=== PATIENT | male | born 1955 | race Caucasian/White ===

== ENCOUNTER 2019-02-17 14:50 | Outpatient (CLI) | payer MEDICARE ==
--- NOTE | 2019-02-19 15:59 | OP Clinic Progress Note ---
DATE OF VISIT: 02/17/2019 SUBJECTIVE: Sherif White presented to clinic today for follow-up of left severe heel pain. The pain is worse today than it has been previously according to the patient. He stands all day on a soft mat but is standing all day at work. He has been prescribed Lotrisone due to some abnormal skin discoloration/appearance with xerosis and slight mixed discoloration and xerotic appearance. This may be a tinea pedis appearance as it had a bulla on his most recent visit which was deroofed. The patient has also been using an antibiotic ointment and a Band-Aid on the site of the bulla and this is almost completely healed today. The patient has had a history of blistering in this area at times and has been having pain in the heel for years now and states he is ready to obtain treatment. He is here today for a right heel steroid injection in the plantar fascia which he is hopeful will be helpful today. The patient does not admit to any fevers, chills, nausea, vomiting, shortness of breath or chest pain at this time. He is not diabetic. Dr. Stevens is his primary care physician. This past visit when I saw him on Friday I prescribed AFO Anna brace orthotics. I believe I wrote them for both ankles but the patient thought today they were just for the right ankle. We will need to clarify with him that they are for both ankles and he may want to hold off on getting good orthotic inserts from [employer] for just the left foot if he is getting good AFOs for both. His appointment is in mid February with [facility] as he had already received a call from them. OBJECTIVE: Vitals: Temperature 98.8 degrees Fahrenheit, heart rate 90, respiration rate not recorded, blood pressure 144/76. O2 saturation is 94% on room air. Vascular: 1+ DP and PT pulses, bilaterally. Capillary refill time is less than 3 seconds to the toes bilaterally. There is mild to moderate edema still noted, bilateral lower legs. Dermatologic: The medial left heel bulla is appearing almost completely healed at this time. There is still some intermixed dark discoloration like an old eschar still noted at the left plantar heel. There is no erythema or warmth noted. There is no drainage noted. There is no fluctuance noted. Musculoskeletal: There is severe pain on palpation noted at the plantar medial calcaneal tubercle, left heel, as well as just distal to that area just off the tubercle area distally. The patient seems to be a little bit more soft in that area than just proximal to it. It is difficult to measure the range of motion of the left ankle due to severe pes planovalgus deformity as well. Pes planovalgus deformity is noted bilaterally and the RCSP basically has medial ankle to the ground on the right foot more than the left. Neurologic: Light touch sensation is intact to the toes, bilaterally. ASSESSMENT AND PLAN: 1. Plantar fasciitis, left foot. 2. Tinea pedis, left heel. 3. Posterior tibial tendon dysfunction bilateral, but right is more than the left. 4. Venous insufficiency, bilateral lower extremities. The risks and benefits of a procedure for a steroid injection of the left plantar fascia was discussed including bleeding and infection as well as other things including steroid flare. The patient agreed by written and verbal consent to go forward with the steroid injections to the left plantar fascia. An alcohol swab was utilized to cleanse the area of the plantar medial heel and a total of 1 mL of 2% lidocaine plain and 1 mL of 0.5% Marcaine plain, 0.5 mL of dexamethasone, 4 mg/mL and 0.5 mL of Kenalog 40 mg/mL were injected into the plantar fascia area as well as to the calcaneal nerve branch off the medial side. The patient admitted some improvement and relief after standing up again. We will see how much this helps him. A Band-Aid was applied prior to getting up. The patient tolerated the procedure very well. The patient knows that we will give this a month and if it is improving a decent amount we will consider a second injection of the steroid at that time. If we are not getting improvement at that time, however, then we will consider an MRI and may need to consider surgical assessment. We will also need to consider possible biopsy of the skin if the skin is not healing or improving with Lotrisone underneath the heel. I believe he stated he has had that for quite some time. He has never tried a prescription antifungal/steroid, however, for it so we will see if it continues working. He is to continue doing that on the plantar heel and antibiotic ointment and a Band-Aid to that small area where the bulla was deroofed on the medial side of the heel. Antibiotic ointment and a Band-Aid were applied to that today as well as where the injection took place. The patient has no further questions or concerns and we will see him in 1 month for follow-up and possible repeat steroid injection. Catherine [email or web address] (Dictated/Not Signed) [place] JOB#: [id number] MTDD
== END 2019-02-17 15:20 ==
LOC: POD 14:50
PROVIDERS: ATTEND Podiatrist Foot & Ankle Surgery
DX: M72.2 Plantar fascial fibromatosis (principal); M76.821 Posterior tibial tendinitis, right leg; M76.822 Posterior tibial tendinitis, left leg; B35.3 Tinea pedis; I87.2 Venous insufficiency (chronic) (peripheral)
CPT/HCPCS: 20550

== ENCOUNTER 2019-03-18 14:31 | Outpatient (CLI) | payer MEDICARE ==
--- NOTE | 2019-03-23 15:47 | OP Clinic Progress Note ---
DATE OF VISIT: 03/18/2019 SUBJECTIVE: Sherif White is a 64-year-old male presenting to the clinic today for follow up of plantar fasciitis on the left foot as well as abnormal skin changes and bulla formation on the left heel as well as follow up of the injury on the right foot at the fifth toe where he stubbed his toe and possibly sustained a small fracture. The patient refused x-rays last time and does not want them at this time as he feels that the toe is feeling great and without really any pain at this time. The patient admits that he is not having the type of plantar fasciitis pain that he was before. It is much more mild. The patient does state however that he is getting lots of drainage and blisters forming underneath that plantar medial left heel. The patient was using Lotrisone at one point and feels like it was improving, however he stopped using it because of the wound opening. The patient is willing to do whatever he needs to do and understands the importance of possibly doing a biopsy either today or in the near future to make sure this is not some sort of benign or malignant soft tissue mass or skin cancer. The patient understands the importance of doing that if we need to, soon. The patient is interested in attempting to try a heel offloading surgical shoe. The patient does not admit to any fevers, chills, nausea, vomiting, shortness of breath or chest pain at this time. OBJECTIVE: Vitals: Temperature 97.5 degrees Fahrenheit, heart rate 106, respiration rate 20, blood pressure 127/71. O2 saturation is 94% on room air. Vascular: 1+ DP and PT pulses, left foot. Capillary refill time is less than 3 seconds to the toes of the left foot. There is no edema noted today on the right fifth toe area any more nor in the left foot. Dermatologic: The left plantar medial heel has a very thin layer of skin with dark discoloration and some pinpoint dark spots and striations throughout the skin in that area. There is also evidence of bulla formation on the proximal medial aspect as well as a small amount of open raw tissue exposed. This area just has the appearance like it has been beat down with pressure and it is concerning as to whether or not it has a verrucoid appearance versus a tinea pedis type of look. It appears to be more of tinea pedis with a bulla formation and skin changes. There is no purulence, malodor, warmth or erythema noted at this time. There is hyperkeratosis that is mild noted on the right medial central arch as well as the plantar medial IPJ bilateral great toes. There is no ecchymosis noted today at the right fifth toe. Musculoskeletal: There is much less severe, even mild pain on palpation directly at the plantar medial heel where the lesion is noted. This is much improved from last time. The patient did state that he was off work this last week due to being ill. He is feeling much better at this time it seems. The patient has severe pes planovalgus deformity bilaterally. In RCSP his medial ankle drops quite far, almost to the ground. There is no pain on palpation noted today at the right fifth toe. Neurologic: Light touch sensation is diminished to the foot. There is no pain with debridement, but there is a little bit of pain with direct pressure on the left heel. ASSESSMENT AND PLAN: 1. Skin ulcer over the plantar aspect of the left foot, unspecified ulcer stage, L97.529. 2. Tinea pedis, left heel. 3. Injury of toe of right foot, subsequent encounter. There was no procedure performed today. The area on the plantar medial heel was cleansed very well today with alcohol swabs and evaluated. There was very minimal bulla formation as the patient states that he already opened up most of the blister formation that was there this morning. He states he will leave it intact the next time if it happens again. The patient has very thin skin underneath the heel and an abnormal skin appearance that is suggestive of a tinea pedis versus a possible verrucoid lesion. There is also of course some concern for some sort of skin dystrophic changes with some sort of concern for a cancerous lesion that of course needs to be in my differential. We discussed the possibility of skin biopsies today versus giving him two weeks on Lotrisone twice daily with a heel offloading surgical shoe that we dispensed today. We decided to go ahead and go forward with this at this time for the surgical shoe and Lotrisone twice daily. If this is improving in one week from now we will continue, but if it is not improving then we will consider going ahead and doing skin biopsies x2 of the plantar medial left heel. The patient is good with this plan and agrees and we will go forward with this at this time. We put a surgical shoe on him today with the heel offloading and encouraged him to be cautious to not lean back on the heel as he may fall backwards and with his cane he demonstrated safe and easy ambulation and he felt good and stable and good balance with walking today. The patient had no further questions or concerns. We will have him return to clinic in one week and we will consider biopsies versus another week of continued treatment depending on how it looks. Scotty Rodríguez.P.M.(Dictated/not signed) /Accutype [id number] /mab MTDD
== END 2019-03-18 15:00 ==
LOC: POD 14:31
PROVIDERS: ATTEND Podiatrist Foot & Ankle Surgery
DX: S99.921A Unspecified injury of right foot, initial encounter (principal); L97.529 Non-pressure chronic ulcer of other part of left foot with unspecified severity; B35.3 Tinea pedis; X58.XXXA Exposure to other specified factors, initial encounter; Y99.8 Other external cause status
CPT/HCPCS: 99213

== ENCOUNTER 2019-03-25 14:16 | Outpatient (CLI) | payer MEDICARE ==
--- NOTE | 2019-03-30 14:11 | OP Clinic Progress Note ---
DATE OF VISIT: 03/25/2019 SUBJECTIVE: Sherif White is a 64-year-old male presenting with his in the clinic today. He is here for follow up of the left plantar medial heel skin lesion/abnormality that he has been dealing with for quite some time now. He has been having multiple bulla formation recently, but much less this week he reports. We have been considering doing biopsies of this area as he has struggled to improve and it is with an abnormal skin appearance. The patient states that he has been feeling a lot better there. He does state that he tried using the heel offloading surgical shoe this last week, but felt like he strained his knee and hamstring on the opposite leg trying to wear it and stopped using it. He is willing to try and use it potentially at some of the time still. The patient also admits he is receiving his custom AFO braces for bilateral ankles tomorrow. He is looking forward to that and plans to try and use those in both of his regular shoes. He plans to get new shoes if this does not work. The patient is here for follow up of that plantar medial heel lesion as well as for follow up of the right fifth toe injury that he sustained a couple of visits ago. The patient does not admit to any fever, chills, nausea, vomiting, shortness of breath or chest pain. OBJECTIVE: Vitals: Temperature 98.0 degrees Fahrenheit, heart rate 115, respiration rate 20, blood pressure 125/79. O2 saturation is 93% on room air. Vascular: 1+ DP and PT pulses, left foot. Capillary refill time is less than 3 seconds to the toes of the left foot. There is no edema noted, left foot. The right foot was not visualized today. The patient does state that he does not have any more pain or bruising of the right fifth toe area at all. Dermatologic: The left plantar medial heel has a very thin layer of skin still with a mild amount of dark discoloration and pinpoint dark spots/striations to the skin area. It has a slightly abnormal appearance still, but this is greatly improved from last week. There is much less of the dark discoloration and a more appropriate feel to the skin. There is also no evidence of bulla formation, but the patient did admit to having popped some blisters throughout the week. He did admit it is much less than usual, however. There is no purulence or malodor noted at this time. Things look much improved at this time. Again, the right foot was not visualized today. Musculoskeletal: There is very mild pain on palpation noted only at the plantar medial left heel at the lesion location. This is much improved since previously. The patient in [facility] when he stands, has his ankles drop inward quite significantly. He has severe pes planovalgus deformity noted bilaterally. This is somewhat rigid, but does have some reducibility noted. Neurologic: Light touch sensation is diminished to the foot. There was no debridement performed today at all. ASSESSMENT AND PLAN: 1. Skin ulcer left foot, plantar medial heel, unspecified ulcer stage L97.529. 2. Tinea pedis, left heel. 3. Injury right fifth toe, subsequent encounter: No pain, no ecchymosis per patient. 4. Pes planovalgus deformity, bilateral lower extremities. The patient is receiving his bilateral ankle foot orthotic braces custom tomorrow. He will begin using those in his boots tomorrow. The patient was encouraged to continue his Lotrisone twice daily at this time as he seems to be having great improvement since last week even. We will consider doing skin biopsies x1 or 2 if we do not continue to see improvement of the skin lesion on the left heel. The patient did have noticeable improvement today however versus last week. We also need to consider if this is some sort of verrucoid lesion, but I do not believe it is, as it does not have enough of that appearance and it is quite thin. Return to clinic in one week for follow up. There was no procedure performed today. No debridement was performed today. A dressing consisting of triple antibiotic ointment and 4x4 gauze and tape was applied to hold on to that area. There is no drainage or anything noted today, however. Dylan Rodríguez.M.(Dictated/not signed) /Accutype [id number] /mab MTDD
== END 2019-03-25 14:46 ==
LOC: POD 14:16
PROVIDERS: ATTEND Podiatrist Foot & Ankle Surgery
DX: L97.529 Non-pressure chronic ulcer of other part of left foot with unspecified severity (principal); B35.3 Tinea pedis; M21.41 Flat foot [pes planus] (acquired), right foot; M21.42 Flat foot [pes planus] (acquired), left foot; S99.921A Unspecified injury of right foot, initial encounter; X50.9XXA Other and unspecified overexertion or strenuous movements or postures, initial encounter
CPT/HCPCS: 99213; G0463; A4554

== ENCOUNTER 2019-04-01 14:25 | Outpatient (CLI) | payer MEDICARE ==
--- NOTE | 2019-04-05 16:02 | OP Clinic Progress Note ---
DATE OF VISIT: 04/01/2019 SUBJECTIVE: Sherif White is a 64-year-old male presented to the clinic today for followup of a skin ulcer on the left plantar medial heel. He also is here for followup of his planovalgus deformity bilaterally with new ankle foot orthotics that he received last week. The patient states that he is feeling much better and feels that the heel wound is doing better. He also states that he is feeling better in the ankle and foot on both sides with these braces. He is very grateful and happy that he has them. He does not admit to any fevers, chills, nausea, vomiting, shortness of breath or chest pain. He does admit to some ankle pain at least on the left side that he feels is better with the braces. It is still present, however. The patient does not admit to any fevers, chills, nausea, vomiting, shortness of breath or chest pain. OBJECTIVE: Vitals: Temperature 98.0 degrees Fahrenheit, heart rate 112, respiration rate 22, blood pressure 147/83. O2 saturation is 92% on room air. I believe that the heart rate and respiration rate were elevated as he had just walked into the room and climbed up on the chair which made him slightly short of breath. Vascular: 1+ DP and PT pulses, left foot. Capillary refill time is less than 3 seconds to the toes of the left foot. There is no edema noted of the left foot. We did not look at the right foot. Dermatologic: The left plantar medial heel has still a very thin layer of skin and has less dark discoloration than previous. The dark spots and striations are minimal. There is a small fissure that is present at this time that was debrided today. This fissure/ulcer is measuring at 0.9 x 0.2 x 0.4 cm deep. There is no erythema or malodor or purulence noted. There is no probe to bone. There are no other skin lesions or concerns noted. There are no bullae present and there has not been for several days according to the patient. Musculoskeletal: There is mild pain on palpation noted on the plantar medial left heel at the site of the lesion. This overall has improved still. The patient when standing in the ankle foot orthotics has a much improved resting calcaneal stance position which is still impressive but much better than prior to having the brace. The patient is feeling much better with these. The patient still has significant pain with subtalar joint range of motion on the left that we may need to consider a steroid injection for in the future. Neurologic: Light touch sensation is diminished to the foot. ASSESSMENT AND PLAN: 1. Skin ulcer of left foot, L97.529. 2. Tinea pedis, left heel. 3. Pes planovalgus deformity bilaterally, improved with ankle foot orthotics. The patient is to continue using the Lotrisone as he is doing currently. He still has plenty left according to him today. He will continue using that and we will follow up in two weeks to see if this continues to improve. If for any reason this begins to digress or stall, we will consider tissue biopsies to make sure that this is nothing of a more concerning nature. The patient had Betadine and 4 x 4 gauze and Medipore tape applied to the wound site and is encouraged to do his best to stay off his heel as much as possible. He will continue using the offloading surgical shoe as much as he can on the weekends but states that he has to use a regular shoe during the week at work which he will do. The patient is only working two days a week at this point in time. PROCEDURE #1: Sharp debridement of the left heel ulcer with the curette less than 20 sq cm down to including the subcutaneous tissue layer was performed today. The patient tolerated the procedure well. There was no bleeding that was noted today. Dressings were applied as discussed above. Return to clinic in two weeks. The patient will continue dressing changes as above daily and we will follow up in two weeks to see if he is continuing to improve. Catherine RodríguezPDavidM.(Dictated/not signed) /Accutype [id number] /mab MTDD
== END 2019-04-01 14:45 ==
LOC: POD 14:25
PROVIDERS: ATTEND Podiatrist Foot & Ankle Surgery
DX: L97.529 Non-pressure chronic ulcer of other part of left foot with unspecified severity (principal); B35.3 Tinea pedis
CPT/HCPCS: 11042; 99213

== ENCOUNTER 2019-04-15 14:23 | Outpatient (CLI) | payer MEDICARE ==
--- NOTE | 2019-04-22 08:15 | OP Clinic Progress Note ---
DATE OF VISIT: 04/15/2019 SUBJECTIVE: Sherif White is a 64-year-old male presenting to clinic today for follow up of a left heel ulcer and tinea pedis. The patient has significant posterior tibial tendon dysfunction bilaterally causing a pes planovalgus deformity in bilateral feet. He is using good custom AFOs that he received recently but is concerned that he has a small irritated area on the anterior part of his left ankle, which he will discuss with Memo Ron at his appointment on April 25, 2019. He was encouraged to use a pad in the meantime to protect that area, but it is only a mild irritation and no real concern of a problem beyond that at this time. The patient does not admit to any other issues except states that his did some sort of small surgery on his heel to cut out a chunk of what she called "meat" that looked bad and was coming off the skin when she was cleaning it. It left a little bit of a hole which they feel has filled in some, but it was deep according to them. The patient's showed me some pictures today. The patient and his were encouraged to leave any debridements to myself as I would feel better if I were the one doing it. The patient had no further questions or concerns and states that he is doing well. He does not admit to any fevers, chills, nausea, vomiting, shortness of breath or chest pain. The patient is doing well applying the Lotrisone at least once daily. He feels that it is having mild pain and that there have been no blisters and that it looks really good compared to ever before. The patient also states that he has one other tube of Lotrisone plus another refill. OBJECTIVE: Vitals: Temperature 98.5 degrees Fahrenheit, heart rate 103, respiration rate 20, blood pressure 145/62. O2 saturation is 93% on room air. Vascular: 1+ DP and PT pulses, left foot. Capillary refill time is less than 3 seconds to the toes of the left foot. There is no edema noted to the left foot. Dermatologic: The plantar medial left heel has a very small amount of dark discoloration and it has definitely lessened than previous again. The striations and dark spot is almost gone at this time. The skin is soft and without any evidence of bulla formation. There is no erythema at this time. There is mild bleeding noted with debridement today. There is still a small fissure noted that is present and is measuring today at 1.5 x 0.5 x 0.2 cm deep. This is slightly longer than it was last time and wider and we will have to keep an eye on this to make sure it continues improving. Keeping pressure off of this is very difficult for this patient as he has a hard time walking around and requires a cane to get around anyway. The patient states that he is using his heel offloading boot when he is at home. There are no other skin lesions or concerns areas of the left foot. Musculoskeletal: There is mild pain on palpation still noted at the plantar medial left heel. He still has significant pes planovalgus deformity, but this is improved with the AFO orthotics. The patient does not have any other notable abnormalities noted. Neurologic: Light touch sensation is diminished to the foot, left. ASSESSMENT AND PLAN: 1. Skin ulcer of left foot, L97.529. 2. Tinea pedis left heel. 3. Posterior tibial tendon dysfunction bilaterally with pes planovalgus deformity bilaterally. This is improved with AFOs. PROCEDURE #1: Sharp debridement of the left heel ulcer was performed today down to and including subcutaneous tissue less than 20 sq cm with a #15 blade. This was then rinsed and dried and dressed with triple antibiotic ointment, 2 x 2 gauze and tape. The patient is to continue daily dressing changes at home as he has being doing previously. He is also to continue the Lotrisone at least once daily. Return to clinic in one week for a follow up and we will then do two weeks after that as I will be out of town the second week from now. The patient will continue dressing changes and we will continue local wound care to see if we can continue to get this to improve. If we continue to stall or worsen then we will need to change the plan and try some other things. The patient upon trying to get up on the table today had a hand offered for help to get up, which he did not use and when he went to stand on to the foot stool to get on to the chair, the chair moved up a little bit as if it was going move forward and the patient stepped forward and felt like he was nearly going to fall. There was no fall and it just made the patient and his nervous and we decided to go ahead and have him sit in a regular chair rather than the exam chair today. He felt fine about the whole thing and did not get hurt at all. He did not fall or have any injury. Catherine RodríguezPDavidM.(Dictated/not signed) /Accutype [id number] /mab MTDD
== END 2019-04-15 14:55 ==
LOC: POD 14:23
PROVIDERS: ATTEND Podiatrist Foot & Ankle Surgery
DX: L97.529 Non-pressure chronic ulcer of other part of left foot with unspecified severity (principal); B35.3 Tinea pedis
CPT/HCPCS: 11042; 99212; G0463; A4554

== ENCOUNTER 2019-04-21 14:22 | Outpatient (CLI) | payer MEDICARE ==
--- NOTE | 2019-04-23 14:14 | OP Clinic Progress Note ---
DATE OF VISIT: 04/21/2019 SUBJECTIVE: Sherif White is a 64-year-old male presenting to the clinic today for followup of a left plantar heel ulcer. The patient has been using his heel offloading shoe only at home some of the time and is not using it at work. The patient states that previously it was causing a lot of pain, but that is also at the same he was having some kind of fasciitis issues as well. The patient states that he is willing to try using it again. He does not admit to any fever, chills, nausea, vomiting, shortness of breath or chest pain. He does not admit to any other issues with the heel except that he is still having some pain with walking. The patient has had this, he admits for now, about two years since the first fissure showed up underneath the heel and he has been fighting this for now two years. OBJECTIVE: Vitals: Temperature 98.7 degrees Fahrenheit, heart rate 116, respiration rate 18, blood pressure 104/57. O2 saturation is 94% on room air. Vascular: Palpable DP and PT pulses, left foot. Capillary refill time is less than 3 seconds to the toes left foot. There is mild edema noted, left lower extremity. Dermatologic: Left plantar heel ulcer has a small amount of dark discoloration near the fissure where I believe there is dry blood that had layered on the skin. The patient has no erythema, warmth, purulence, malodor or abnormal drainage from this area. He is having some serosanguinous drainage, however, as he does have a notable fissure that is measuring today at 2.6 x 0.3 x 0.2 cm deep. This is worse from last week when it measured 1.5 x 0.5 x 0.2 cm deep. The patient does not have any undermining wound noted. There are no other abnormal skin lesions noted. There is no bulla formation left plantar heel. Musculoskeletal: There is still some pain on palpation and pain with debridement of the fissure left heel plantarly. There is significant posterior tibial tendon dysfunction with resultant pes planovalgus deformity noted bilaterally. The right side was not visualized, but it is noted from our last visit. The patient is also overweight and has a lot of pressure on the heel with ambulation. The patient is having a hard time keeping pressure off of the heel. Neurologic: Light touch sensation is intact to the toes, left foot. ASSESSMENT AND PLAN: 1. Left heel ulcer. 2. Tinea pedis left heel. 3. Posterior tibial tendon dysfunction bilaterally. PROCEDURE #1: Sharp debridement of the left heel ulcer less than 20 sq cm down to and including the subcutaneous tissue layer was performed with a curette today. This was then measured and found to be worse than last week. This was then dressed with triple antibiotic ointment, 4x4 gauze and tape. The patient is having a hard time keeping this offloaded and we encouraged him to try and go back to using the heel offloading surgical shoe that he has even at work. The patient will strive to do this and he would like to try and use his ankle foot orthotic in surgical shoe and I told him that this may cause him to have balance issues as it may act as a lever over the top of the heel offloading surgical shoe. The patient wants to try it at home and he was encouraged to do so carefully and safely with someone near him to help as well as his cane. He was encouraged to try this at home if he wishes and he may not be able to use it if he is feeling unsafe. He is going to try and use this surgical shoe that has the heel offloading going forward and see if it provides better relief from pressure under the heel as it is worsening because of that. I believe his blood flow is substantial and no signs of infection, so I believe that the pressure is the main problem here. We discussed that I will also look into the possibility of obtaining the ability to do a total contact cast or a TCC-EZ on his left foot, which would allow him to still ambulate, but have less pressure underneath the heel. I will look into this. The patient knows I will not be here next week and we will have him return to clinic in two weeks for followup and hopefully we will have more information that week or the week after for being able to do possibly a total contact cast if this is not improving. We also discussed the possibility that we could consider doing a surgical wound debridement and primary closure of the heel wound to see if we can then keep him off of it with a total contact cast and allow it to heal that way. The patient does not have any sort of short term disability or ability to take much time off at all at work and so we are trying to see what options we have otherwise. Return to clinic in two weeks. Rafy Sams D.P.M.(Dictated/not signed) /Accutype [id number] /mab MTDD
== END 2019-04-21 14:45 ==
LOC: POD 14:22
PROVIDERS: ATTEND Podiatrist Foot & Ankle Surgery
DX: L97.429 Non-pressure chronic ulcer of left heel and midfoot with unspecified severity (principal); B35.3 Tinea pedis; M76.821 Posterior tibial tendinitis, right leg; M76.822 Posterior tibial tendinitis, left leg
CPT/HCPCS: 11042; 99212; A4554; G0463

== ENCOUNTER 2019-05-06 14:26 | Outpatient (CLI) | payer MEDICARE ==
--- NOTE | 2019-05-13 20:30 | OP Clinic Progress Note ---
DATE OF VISIT: 05/06/2019 SUBJECTIVE: Sherif White is a 64-year-old male presenting to clinic today for follow up of a left heel plantar ulcer and tinea pedis and posterior tibial tenderness dysfunction bilaterally. The patient states that he has tried using the heel offloading surgical shoe, but states that he just cannot wear well at work as he has to move around so much and he feels not balanced. The patient does not admit to any concerns or abnormalities this last week. They have begun using a Band-Aid over the wound to try and hold it together somewhat like a Steri-Strip and feels that it has improved. They then have an appropriate gauze bandage over the top. The patient does not have any other fever, chills, nausea, vomiting, shortness of breath or chest pain. OBJECTIVE: Vitals: Temperature 97.7 degrees Fahrenheit, heart rate 107, respiration rate 18, blood pressure 122/73. O2 saturation is 93% on room air. Vascular: Palpable DP and PT pulses, left foot. Capillary refill time is less than 3 seconds to the toes left foot. There is mild edema noted about the left lower extremity. Dermatologic: The plantar heel ulcer on the left heel has improved slightly in terms of size and appearance. There is still an open fissure noted that is measuring at this time 2.0 x 0.4 x 0.1 cm deep. This is improved from two weeks ago when it measured 2.6 x 0.3 x0.2 cm deep. There is no undermining noted. The skin edges and wound base were debrided to a good bleeding base with hemostasis being obtained by pressure. There are no other concerning lesions on the left foot. Musculoskeletal: There is very mild if any pain on palpation and with debridement of the left fissure today. It really does not bother him today. There is significant posterior tibial tendon dysfunction with obvious pes planovalgus deformity bilaterally. We did not look at the right side today. Neurologic: Light touch sensation is intact to the toes, left foot. ASSESSMENT AND PLAN: 1. Left heel ulcer. 2. Niya pedis left heel. 3. Posterior tibial tendon dysfunction bilaterally (using AFOs). PROCEDURE #1: Sharp debridement of the left heel plantar ulcer was performed today with a #15 blade down to and including the subcutaneous tissue layer less than 20 sq cm. Bleeding was controlled with pressure and the site was dressed with triple antibiotic ointment and a Band-Aid to somewhat pull the fissure ends together and covered with gauze and Medipore tape. The patient is going to continue to do his best to stay off the heel as much as he can, but is using a regular shoe and ankle foot orthotic on the left side. We are having a hard time keeping all pressure off this area. We will have the patient return to clinic in two weeks and at that time will consider applying medical glue while holding the wounds together and we will consider that versus possibly looking more into a total contact cast if he is not improving. If he continues to improve we will still consider medical glue or we will continue local wound care as we are doing now. There is no concerns for maceration, so dressings are appropriate. It is also staying somewhat moist. We will see the patient in two weeks. He knows to call if there are any concerns. Scotty Rodríguez.P.M.(Dictated/not signed) /Accutype [id number] /mab MTDD
== END 2019-05-06 14:56 ==
LOC: POD 14:26
PROVIDERS: ATTEND Podiatrist Foot & Ankle Surgery
DX: L97.429 Non-pressure chronic ulcer of left heel and midfoot with unspecified severity (principal); B35.3 Tinea pedis; M76.821 Posterior tibial tendinitis, right leg; M76.822 Posterior tibial tendinitis, left leg
CPT/HCPCS: 11042; 99212; G0463; A4554

== ENCOUNTER 2019-05-20 14:25 | Outpatient (CLI) | payer MEDICARE ==
--- NOTE | 2019-06-02 11:09 | OP Clinic Progress Note ---
DATE OF VISIT: 05/20/2019 SUBJECTIVE: Sherif is presenting today for follow up of the left heel plantar ulcer. The patient has been seen for several weeks now with some improvement in the plantar heel ulcer, but with difficulty keeping pressure off of the area. We are trying a couple of different things before seriously considering a total contact cast. The patient is unable to take a break from work and he is unable to work well in the heel offloading surgical shoe that he was given awhile back. The patient is feeling that the pain is improving overall, but he still has some pain in the heel. He feels that it is looking a little bit better. The patient does not admit to any fevers, chills, nausea, vomiting, shortness of breath or chest pain. OBJECTIVE: Vitals: Temperature 98.0 degrees Fahrenheit, heart rate 108, respiration rate 18, blood pressure 112/70. O2 saturation is 93% on room air. Vascular: Palpable DP and PT pulses, left foot. Capillary refill time is less than 3 seconds to the toes of the left foot. There is mild edema noted, left foot. Dermatologic: The left heel open ulcer is present and seems to be slightly improved in terms of length and is measuring today at 1.7 x 0.2 x 0.2 cm deep. There is no erythema or malodor or purulence noted. There is mild eschar in the distal edge which is stable holding the wound together. There is still gaping of the wound and it can also be pressed closed. There are no other open lesions or concerns. There is some very minimal dark discoloration around the wound that has been present since the beginning that was likely from the athletes foot. The patient has no further concerns in the skin. Musculoskeletal: There are no gross abnormalities noted. There is mild pain on palpation and with debridement at the left heel ulcer. This is noted plantarly. Neurologic: Light touch sensation is diminished to the heel, left foot. ASSESSMENT AND PLAN: 1. Left heel plantar ulcer. PROCEDURE #1: Sharp debridement of the left heel ulcer less than 20 sq cm with a #15 blade down to and including the subcutaneous tissue layer was performed today. The site was rinsed with a copious amount of normal saline. This was dried appropriately and then medical glue was applied while holding the wound closed. This was then allowed to dry and a little bit more was applied over the top to make sure it was sealed closed. Steri-Strips were then applied over the top with sterile prep on the edges to help hold the Steri-Strips down. This was then covered with 4 x 4 gauze and medical tape. We will see how well the patient does with this medical glue closure and we will see him back in one week for followup to see how well that worked. We may leave it alone at that time or we may need to follow up with a repeat debridement and again medical glue closure. We will see if this works over the next couple of weeks. I worry that any sort of anesthetic and sutures would likely cause the sutures to break through the skin because he walks on it and the skin is so friable down in the heel. I worry about doing that at this time. I am hoping medical glue will help. If not we will need to strongly consider looking into a total contact cast. This would allow the patient to walk in an appropriate cast boot and still have pressure off that area. The patient has no further questions and we will see him in one week for his return to clinic visit. Catherine RodríguezP.M. (Dictated/not signed) /Accutype [id number].[email or web address] /mab MTDD
== END 2019-05-20 15:25 ==
LOC: POD 14:25
PROVIDERS: ATTEND Podiatrist Foot & Ankle Surgery
DX: L97.429 Non-pressure chronic ulcer of left heel and midfoot with unspecified severity (principal)
CPT/HCPCS: 11042; 99212; G0463; A4554

== ENCOUNTER 2019-05-27 14:27 | Outpatient (CLI) | payer MEDICARE ==
--- NOTE | 2019-06-07 17:40 | OP Clinic Progress Note ---
DATE OF VISIT: 05/27/2019 SUBJECTIVE: Sherif presents to the clinic today for follow up of a left plantar heel ulcer/fissure he has had for at least a couple of months now. We last week debrided and applied medical glue to try and help hold it closed and then followed it with Steri-Strips and gauze and the patient's says that it held together well until Friday when it finally came off with the dressings. She said it stunk quite a bit when it came off. They do not admit to any other concerns or issues however. The patient admits that he only works Wednesdays and and otherwise tries to stay off of it as much as possible. He is not really, hardly using the rearfoot offloading surgical shoe lately. It is not able to be used at work and it does not sound like he is using it much at home. He states he is willing to do better with that going forward however at home. The patient does not admit to any fevers, chills, nausea, vomiting, shortness of breath or chest pain. OBJECTIVE: Vitals: Temperature 97.3 degrees Fahrenheit, heart rate 104, respiration rate 20, blood pressure 133/61. O2 saturation is 93% on room air. Vascular: 2+ DP and PT pulses, left foot. Capillary refill time is less than 3 seconds to the toes of the left foot. There is mild edema noted, left foot. Dermatologic: There is still a small open fissure on the left plantar heel, but it appears smaller than previous and with healthier skin around it. There is very mild maceration noted which is hardly noticeable at this time. There is no hyperkeratotic tissue noted. There is no erythema or malodor at this time or purulence noted. The wound does not undermine or probe deep or go anywhere near bone. There is a good bleeding granular base with debridement today. The plantar left ulcer is measuring today at 1.5 x 0.2 x 0.1 cm deep. This has improved from last week when it was measuring 1.7 x 0.2 x 0.2 cm deep. Musculoskeletal: There is no pain with debridement today. There were no other gross abnormalities noted outside of obvious fallen arches bilaterally with diagnosed posterior tibial tendon dysfunction. Neurologic: Light touch sensation is absent to the toes, left foot. ASSESSMENT AND PLAN: 1. Left heel plantar ulcer/fissure. 2. Posterior tibial tendon dysfunction bilaterally. PROCEDURE #1: Sharp debridement with a curette less than 20 sq cm to the left plantar heel was performed down to and including the subcutaneous tissue layer. The site was rinsed with a copious amount of normal saline and dried. Next we were able to hold the skin together and apply medical glue to the left heel and once this completely dried, we applied SurePrep and Steri-Strips to help hold it together also. This was followed by 4 x 4 gauze with Medipore tape to help hold it on. The patient understands that we really need him to do his best to stay off of his heel as much as possible. He needs to wear the offloading heel surgical shoe as much as possible. He understands this and states he will do this. We want to give this the best chance it can. I believe it has definitely helped since last week with the wound improving a little bit. The patient will return to clinic in one week for follow up and local wound care. If it continues to improve we will continue doing the medical glue as I do not feel suturing would help as the skin is so friable. Catherine RodríguezPDavidM. (Dictated/not signed) /Accutype [id number].[id number] /mab MTDD
== END 2019-05-27 14:45 ==
LOC: POD 14:27
PROVIDERS: ATTEND Podiatrist Foot & Ankle Surgery
DX: L97.429 Non-pressure chronic ulcer of left heel and midfoot with unspecified severity (principal); M76.821 Posterior tibial tendinitis, right leg; M76.822 Posterior tibial tendinitis, left leg
CPT/HCPCS: 11042; 99213; G0463; A4554

== ENCOUNTER 2019-06-03 14:30 | Outpatient (CLI) | payer MEDICARE ==
--- NOTE | 2019-06-11 15:22 | OP Clinic Progress Note ---
SHERIF GERBER ADMISSION #.: [id number] : 1955 DATE OF VISIT: 06/03/2019 SUBJECTIVE: Sherif presents to the clinic today for follow up of a left heel plantar fissure/ulcer that has been present for quite awhile now. He is unable to take any time off of work at all which is making it very difficult to heal this wound. He has a heel offloading surgical shoe which he has been struggling to use as he states it is very difficult to use at work. He also has ankle-foot orthotics that are custom braces that he is using in shoes. He also complains today of pain on the plantar medial arch and medial foot just below the ankle, where it is collapsed medially on the right foot. The patient has been using these braces for a little while and he is complaining of increased pain this last week and redness in the area. The patient is getting in the beginning of June and refuses to be in any kind of cane at the ceremony. The patient does not admit to any fevers, chills, nausea, vomiting, shortness of breath or chest pain. The patient admits that the medical glue last week came off very quickly after because of increased perspiration. OBJECTIVE: Vitals: Temperature 98.9 degrees Fahrenheit, heart rate 107, respiration rate 18, blood pressure 143/54. O2 saturation is 92% on room air. Vascular: Palpable DP and PT pulses, left foot. Capillary refill time is less than 3 seconds to the toes of the left foot. There is still mild edema noted in the left lower extremity. Dermatologic: The left plantar heel still has an open ulcer/fissure that is larger than last week. There is some maceration tissue on the edge as well. The wound is measuring today at 2.2 x 0.3 x 0.3 cm deep. This is much worse than last week when it measured 1.5 x 0.2 x 0.1 cm deep. There is no erythema or abnormal warmth or any sort of purulence draining from that. There is also a very small perhaps 0.2 cm long tear in the skin just distal to this where the patient states he was taking up a Band-Aid and it tore the skin little. This is very small and without need for debridement at this time. It should heal on its own. This is a little bit distal to the ulcer on the heel. It is still pretty close under the heel, however. There is hyperkeratotic tissue with slight irritation/redness around the edge of it at the plantar medial arch where there is a bony prominence palpable, right foot. This has been present I believe, but I believe that this is becoming more irritated in his brace for some reason. He also has a small bony prominence just proximal to that on the medial side that is sore to palpation, also right foot. There is no fluctuance or cellulitis noted. There is obvious fallen arches bilaterally and obvious rear foot eversion and forefoot deformity noted with too many toes sign. The patient does not have any other gross abnormalities noted. Neurologic: Light touch sensation is diminished to the toes bilaterally. ASSESSMENT AND PLAN: 1. Left heel plantar fissure/ulcer - worsening. 2. Hyperkeratosis, right plantar medial arch. 3. Posterior tibial tendon dysfunction bilateral, symptomatic. PROCEDURE #1: Sharp debridement with #15 blade to the subcutaneous tissue layer at the left plantar heel ulcer, less than 20 sq cm. PROCEDURE #2: Sharp debridement of hyperkeratotic tissue, right plantar medial arch. The patient tolerated these procedures well. After lengthening the plantar heel on the left side it is dried and dressed with small amount of Triple Antibiotic Ointment at the wound as well as Betadine-soaked Adaptic, 4 x 4 gauze and Medipore tape. The patient is to continue doing this dressing daily. He is only to dress it daily unless it gets soaks through. We discussed with the patient that we will try and reach out to the total contact cast rep again. I have reached out to him before and have not heard anything back despite a couple of attempts now. I will try and reach to him again this week. The patient was encouraged to contact Abisai at [facility] to see if they can make any adjustments to his ankle foot orthotics due to the increased pressure on the right plantar medial arch and medial ankle area. The patient states he will call tomorrow. The patient will also speak with Abisai about a ELIM IRA walker. I will consider calling Abisai as well and see if a ELIM IRA walker would be a better option for protecting this patient on the right side and may also ask if there are any other good offloading options for the left heel as the patient cannot take off work. We also discussed with the patient to bring a surgical shoe next week so that I can try and pad and offload the heel area if at all possible. We also discussed with the patient that if we cannot improve the right foot he may benefit from reconstructive surgery elsewhere. We will only talk about that further really if this cannot be helped with the adjustment to the ankle foot orthotic. The patient has no further questions or concerns and we will see him in one week for followup. Catherine RodríguezP.M.(Dictated/not signed) /Accutype [id number].[id number] /mab MTDD
== END 2019-06-03 15:00 ==
LOC: POD 14:30
PROVIDERS: ATTEND Podiatrist Foot & Ankle Surgery
DX: L57.0 Actinic keratosis (principal); M76.822 Posterior tibial tendinitis, left leg
CPT/HCPCS: 11042; 11055; 99213; G0463; A4554

== ENCOUNTER 2019-06-10 15:13 | Outpatient (CLI) | payer MEDICARE ==
--- NOTE | 2019-06-15 10:21 | OP Clinic Progress Note ---
DATE OF VISIT: 06/10/2019 SUBJECTIVE: Sherif presents to clinic today for followup of the left heel plantar fissure/ulcer. Last week he also was having some pain and rubbing from his shoes in the right foot. The patient states that he has begun using his ankle foot orthotics all the time rather than only some of the time like he was before and states that the pain has greatly resolved itself on both feet. He states that he has very minimal redness, but it is mostly gone away at this time. He is feeling much better. He also states that he has I think less pain on the left heel unless sitting and pushing on it. The patient does not admit to any fevers, chills, nausea, vomiting, shortness of breath or chest pain. He brought in his surgical shoe with the heel offloading both in for me to adjust if we wanted. He does admit that it is very hard to use that shoe at work and so we decided to leave it alone and not do adjustments to that as he is not wearing it anyway at this time and to continue using the ankle foot orthotics as his wound looks much better today than last week. OBJECTIVE: Vitals: Temperature 98.0 degrees Fahrenheit, heart rate 84, respiration rate 18, blood pressure 121/59. O2 saturation is 96% on room air. Vascular: Palpable DP and PT pulses, left foot. Capillary refill time is less than 3 seconds to the toes of the left foot. There is mild edema noted, left lower extremity. Dermatologic: The fissure under the left heel has improved in appearance and size measuring today at 1.8 x 0.3 x 0.2 cm deep. This has improved from last week where it measured 2.2 x 0.3 x 0.3 cm deep. The patient was happy to hear the improvement today. There is no erythema or abnormal drainage. There is still a little bit of biofilm which was debrided today with a #15 blade as well as the edge of the wound where there was slight undermining, to remove some of the undermining. The patient does not have any erythema or warmth or abnormal drainage or malodor or any other signs of infection. There are no other concerning areas on the left leg. The right leg was not visualized today, as the patient said it was feeling and looking much better. Musculoskeletal: There was mild pain on palpation with direct palpation under the left heel, but no pain or debridement. The patient has notable pes planovalgus deformity and posterior tibial tendon dysfunction bilaterally. Neurologic: Light touch sensation is diminished to the toes, left foot. ASSESSMENT AND PLAN: 1. Left heel plantar fissure/ulcer. 2. Pain right foot - improved. 3. Posterior tibial tendon dysfunction bilaterally. PROCEDURE #1: Sharp debridement was performed down to and including subcutaneous tissue layer of the left heel fissure/ulcer less than 20 square cm with a #15 blade without incident. The site was rinsed with a copious amount of normal saline, dried and Triple Antibiotic Ointment and 4 x 4 gauze was applied, covered in medical tape. The patient is to continue using his ankle foot orthotics as he had much improvement this last week as he was using his brace all the time instead of just some of the time like he admits he was doing previously. Return to clinic in one week for followup and wound care. The patient was notified that I have an appointment with the total contact cast rep next week and we will see about possibly getting that started next week if we can get approval in time. If he continues to improve next week, however, we may not do the total contact cast and wait a little longer and use it only if he stalls in his healing while he is in ankle foot orthotics better. Also of note, the patient's wedding is in 10 days. Catherine RodríguezP.M. (Dictated/not signed) /[employer] [id number] /mab MTDD
== END 2019-06-10 15:43 ==
LOC: POD 15:13
PROVIDERS: ATTEND Podiatrist Foot & Ankle Surgery
DX: L97.429 Non-pressure chronic ulcer of left heel and midfoot with unspecified severity (principal); M76.821 Posterior tibial tendinitis, right leg; M76.822 Posterior tibial tendinitis, left leg
CPT/HCPCS: 11042; 99212; G0463; A4554

== ENCOUNTER 2019-06-24 14:30 | Outpatient (CLI) | payer MEDICARE ==
--- NOTE | 2019-06-28 16:39 | OP Clinic Progress Note ---
DATE OF VISIT: 06/24/2019 SUBJECTIVE: Sherif presents today for followup of left plantar heel ulcer that has been there for several months now. The patient states he is having a lot more pain underneath that left heel at this time. He was unable to come in last week because he was getting that weekend. The patient also admits to a lot of increasing pain and irritation on the right plantar medial arch. He is almost completely wearing the ankle foot orthotics with occasionally walking without it and realizes very quickly that he cannot due to excessive pain when he does. He is worried that the appearance of the medial foot and ankle on the right lower extremity is changing as if it is flattening perhaps more and having more prominence. The patient does not admit to any other issues in the feet at this time. He admits that he is in a very difficult situation where he is unable to stop working for any sort of extensive surgical treatment and that he has to continue doing the work that he is doing. He states that he has no options for FMLA or disability due to his current work status and age and has a hard time getting any more than three days off at a time. The patient does not admit to any fevers, chills, nausea, vomiting, shortness of breath or chest pain. OBJECTIVE: Vitals: Temperature 97.3 degrees Fahrenheit, heart rate 103, respiration rate 18, blood pressure 137/71. O2 saturation is 93% on room air. Vascular: Palpable DP and PT pulses, left foot. Capillary refill time is less than 3 seconds to the toes left foot. There is no significant edema in bilateral feet today. Dermatologic: The fissure under the left heel today is measuring at 1.6 x 0.6 x 0.4 cm deep. This is perhaps overall the same as two weeks ago where it measured 1.8 x 0.3 x 0.2 cm deep. There is no erythema or malodor or drainage noted at this time. There is some slough in the base, which is debrided today to a bleeding granular base. It undermines slightly which is why it was opened slightly more in width. There was no [id number]. There is no erythema or other signs of infection. The right plantar medial arch has a very significant prominence that has been present, but is definitely worsening now with some thickening of the skin and some callus formation, which is still soft and unable to be debrided. There is significant irritation and warmth noted around the edges of this site as well as another osseous protrusion just proximal on the medial side of the foot/ankle. There are no open lesions on these areas yet. The callus does have a little bit of dark discoloration centrally. There is no fluctuance. Musculoskeletal: There is significant/severe pain on palpation noted at the plantar medial arch at the prominent areas. There is no fluctuance noted. There is some light warmth noted. There is no open lesion at this time. There is significant pain on palpation underneath the left plantar heel as well. There is significant pes planovalgus deformity bilaterally with posterior tibial tendon dysfunction bilaterally with completely fallen arches bilaterally. The patient is using ankle foot orthotics. Neurologic: Light touch sensation is diminished to the toes, left and right foot. ASSESSMENT AND PLAN: 1. Left heel plantar fissure/ulcer. 2. Right foot pain. 3. Posterior tibial tendon dysfunction bilaterally, worsening on right lower extremity. 4. Hyperkeratosis, right foot. 5. Foot and ankle deformity, right and left. PROCEDURE #1: Sharp debridement less than 20 sq cm to the subcutaneous tissue layer with a #15 blade of the left plantar heel fissure/ulcer. The patient tolerated the procedure well. This was rinsed with normal saline and dried and had triple antibiotic ointment and gauze applied, covered in Medipore tape. The patient has a thin callus that is still soft over the plantar medial arch prominence, which is left alone today. It was covered in some padding today. We encouraged the patient to call [facility] immediately and he says that he will call tomorrow about seeing if he can be seen as soon as possible to get any sort of adjustment on the ankle foot orthotic of the right side. We also discussed that we are going to consider a total contact cast perhaps next week if we can get approval, for the left lower extremity. I explained to the patient that I am worried that in the boot that he can walk in with the total contact cast I worry that it may cause excessive pressure on the inside where he falls inward on the medial ankle and foot. We would need to do the total contact cast and check it two days later to see how it looks. The patient understands that this would likely need to be the plan and is interested in doing whatever we can to offload that area. We will likely plan on doing this next week if I can get this approved. We will need to see him on a day that allows us to do the cast and then see him again two days later. The patient had no further questions or concerns. I discussed with him that I am concerned that this is going to open very soon on the right plantar medial arch. I feel that we need to get an adjustment on the ankle foot orthotic and also look into the idea that we may need to go forward with surgical correction of the right lower extremity. This is worsening noticeably in the last month since when the skin looked normal and without real irritation or issues. I believe he needs x-rays and follow up quickly to consider surgical evaluation and correction. The patient states that he is unable to take any time off at this time unless medically necessary. He is not sure how he will survive financially if he stops working at any time as he states he has no intermediate set up and needs to keep working. He understands that my concern is that he will be unable to work anyway as he is having a hard time walking at all due to pain in that side. I worry that this will open up in the next week or two if we do not get this addressed quickly. I explained to the patient that although I have been trained in the specific treatment of this kind of condition I have not done this sort of procedure in over a year and recommended that it is much better to be done with two pairs of hands if possible. I feel that he may have a better chance of good surgical care if he would like to go and get another opinion elsewhere. Someone else who does these much more frequently may provide a better outcome for him. I do not believe we have the materials we need with appropriate C-Arm, etc., to do a good enough job on something like this, either. Two names of potential options, Dr. Cuevas and Dr. Sinha were given as options for him to call and see if he can get in for an appointment. He will see what he can do to get in for a second opinion elsewhere. In the meantime he would like me to continue treating the left lower extremity and I will continue doing so as much as he would like and I will also continue watching carefully the right. I will also plan on speaking with [facility] [employer] and see if there are any other options for protecting this area. Rafy Sams D.P.M./[employer] [id number] /mab MTDD
== END 2019-06-24 15:00 ==
LOC: POD 14:30
PROVIDERS: ATTEND Podiatrist Foot & Ankle Surgery
DX: L85.9 Epidermal thickening, unspecified (principal); M21.962 Unspecified acquired deformity of left lower leg; M21.961 Unspecified acquired deformity of right lower leg; M76.821 Posterior tibial tendinitis, right leg; M76.822 Posterior tibial tendinitis, left leg; L97.428 Non-pressure chronic ulcer of left heel and midfoot with other specified severity
CPT/HCPCS: 11042; 99213; G0463; A4554

== ENCOUNTER 2019-07-01 14:25 | Outpatient (CLI) | payer MEDICARE ==
--- NOTE | 2019-07-08 11:39 | OP Clinic Progress Note ---
DATE OF VISIT: 07/01/2019 SUBJECTIVE: Sherif is a 64-year-old male presenting to the clinic today for follow-up of a left heel plantar fissure/ulcer as well as right foot pain with bilateral posterior tibial tendon dysfunction. The patient was supposed to call Abisai at [facility] last week on Friday to get in as soon as possible to get adjustments made on his right AFO (ankle-foot orthotic) due to the increased pain and pressure and irritation noted at the plantar medial arch osseous prominence areas times 2. The patient did not make that phone call, I found out. The other day I was able to call earlier this week and speak with Abisai and he stated that he will call the patient and get him in as soon as possible. It sounds like that appointment has been made and is tomorrow morning. Abisai is planning on offloading the plantar medial arch area better with his ankle-foot orthotic as well as adding a special silicone pad in the heel of the left ankle- foot orthotic to protect it better and improve the fat pad essentially at that area. After speaking with Abisai on the phone he also is concerned about a TCC or total contact cast as he worries that swelling will be a problem for the patient in the total contact cast. I am not sure that I have seen that a big deal for him, but he does swell quite a bit at times according to the patient's . We will hold off on a total contact cast at this time for now and see if these other adjustments with ankle-foot orthotics help. The patient denies having spoken with Dr. Cuevas or Dr. Edmondson yet and understands that I recommend a second opinion as a great idea and he will consider calling one of them and getting x-rays there if needed by their opinion and judgment at that time. OBJECTIVE: Vitals: Temperature 97.3 degrees Fahrenheit, heart rate 101, respiration rate 18, blood pressure 116/72. O2 saturation is 92% on room air. Vascular: Palpable DP and PT pulses, left foot. Capillary refill time is less than 3 seconds to the toes of the left foot. There is no significant edema noted in bilateral feet or ankles today. Dermatologic: The fissure under the left heel today is improved and with mild eschar at the distal edge and wound base with some slough debrided today as well as the surrounding edge of the skin slightly to a wound measuring 1.3 x 0.5 x 0.3 cm deep. This has improved from last week where it measured 1.6 x 0.6. x 0.4 cm deep. There is no erythema, malodor or drainage noted at this time. There is no probe to bone noted. There is still mild dark streaking in the plantar heel which I believe is from blood staining the skin chronically. The right plantar medial arch still has mild red irritation around the two osseous plantar medial prominences, but this has improved from last week. It is still with some hyperkeratotic tissue noted, but not enough that I am willing to debride on this yet. I want to let the skin protect itself for now until we get good offloading on that area. Musculoskeletal: There is as noted before posterior tibial tendon dysfunction that is significant and the patient is getting a lot of pressure on the plantar medial arch especially on the right at the osseous prominences. There is pain on palpation noted at the osseous prominences times two on the plantar medial arch area. There is no open lesion at this time. There is mild hyperkeratosis that was not debrided though like I mentioned. There is significant pes planovalgus deformity bilaterally with posterior tibial tendon dysfunction that we noted. These arches are definitely fallen. The patient is using his ankle- foot orthotics all the time. Neurologic: Light touch sensation is diminished to the toes, left and right feet. ASSESSMENT AND PLAN: 1. Left heel plantar fissure/ulcer. 2. Right foot pain. 3. Posterior tibial tendon dysfunction bilaterally. 4. Hyperkeratosis right foot plantar medial arch, which was left alone today. 5. Foot and ankle deformity, bilateral. PROCEDURE #1: Sharp debridement of the left heel fissure/ulcer less than 20 sq cm down to and including the subcutaneous tissue layer was performed today with a #15 blade. The patient tolerated the procedure well. Hemostasis was obtained with pressure. Normal saline was utilized to cleanse the wound. It was dried and dressed with triple antibiotic ointment and 4 x 4 gauze held with Medipore tape. The patient will see Abisai tomorrow morning for adjustment of both of his AFOs with a silicone pad on the left to act as a fat pad and offloading of the plantar medial arch on the right. I will wait on considering a total contact cast until we see if we get improvement with the above mentioned changes with the ankle-foot orthotics. I will consider the total contact cast if these are improving despite concern for swelling. The patient may call Dr. Cuevas or Dr. Edmondson if desired for a second opinion as I recommended. Return to clinic in one week and we will continue aggressive wound care on the left and monitor carefully the right foot. I am still concerned that he is close to opening that wound unless we can offload it well but I do not feel I can add too much outside of what he is using for his ankle-foot orthotics already. The patient has no other questions and we will see him in one week. Rafy Sams D.P.M./[employer] [id number] R: 07/07/19 /mab MTDD
== END 2019-07-01 14:55 ==
LOC: POD 14:25
PROVIDERS: ATTEND Podiatrist Foot & Ankle Surgery
DX: L97.428 Non-pressure chronic ulcer of left heel and midfoot with other specified severity (principal); L85.9 Epidermal thickening, unspecified; M67.874 Other specified disorders of tendon, left ankle and foot
CPT/HCPCS: 11042; 99213; A4554

== ENCOUNTER 2019-07-08 15:11 | Outpatient (CLI) | payer MEDICARE ==
--- NOTE | 2019-07-13 14:51 | OP Clinic Progress Note ---
DATE OF VISIT: 07/08/2019 SUBJECTIVE: Sherif is a 64-year-old male presenting to clinic for followup of a left heel fissure as well as right foot deformity with increasing hyperkeratosis and pain and prominence and slight irritation at the right plantar medial arch. The patient was able to see Abisai over at [employer] recently and had adjustments made with offloading to the right plantar medial arch with an [place] pad as well as an [place] pad applied in the left plantar heel area to try and protect the heel more. The patient states that he feels the left heel is not hurting as much with this pad. He does feel that the right plantar medial pad was falling apart already and so they placed a type of bandage with a small pad on it to try and hold it from getting worse. The patient states that he is having lots of pain on the right plantar medial arch. He denies calling any of the other second opinion referrals that I suggested to get another opinion on if there are any other ideas for these ankles. He states that he will do this soon. He is concerned that he does not have any options for disability or short term disability at work and therefore he is not sure what other options he can do besides continue working and putting weight on these feet. He understands that surgery is in his very near future for the right foot likely. The patient does not admit to any fever, chills, nausea, vomiting, shortness of breath or chest pain. He is using his ankle foot orthotics at all times. OBJECTIVE: Vitals: Temperature 98.4, heart rate 93, respiration rate 18, blood pressure 124/69, O2 sat is 94% on room air. Vascular: Palpable DP and PT pulses right foot and left foot. Capillary refill time is less than 3 seconds to the toes bilaterally. There is some moderate edema still noted in the bilateral lower extremities. Dermatologic: The right plantar medial arch has a significant hyperkeratosis with some dark discoloration centrally. This was debrided down to intact skin today. There is mild slight red irritation around the edges due to pressure. There is no signs of open lesion or infection at this time. The left heel plantarly has an open fissure that appears more dry today. There seems to be very little drainage at all from most recent. There is slight undermining of the skin edges, which was debrided to crater the wound. The wound base was debrided today to a bleeding intact base. The wound today is measuring at 1.0 x 0.5 x 0.2 cm deep. This may be slightly improved from last week where it measured 1.3 x 0.5 x 0.3 cm deep. There is no signs of erythema or malodor, purulence or drainage noted of concern on the left plantar heel. There are no other skin concerns noted. Musculoskeletal: There is still concerning posterior tibial tendon dysfunction with a fallen arch bilaterally with osseous prominence on the plantar medial right foot. There is significant rear foot adductus deformity and we are striving to offload the patient with the ankle-foot orthotics he has. There are no other gross abnormalities noted. Neurologic: Light touch sensation is intact to the toes bilaterally. ASSESSMENT AND PLAN: 1. Left heel fissure/ulcer. 2. Right foot pain. 3. Posterior tibial tendon dysfunction bilaterally. 4. Hyperkeratosis, right foot. 5. Foot and ankle deformity, bilaterally. PROCEDURE #1: Sharp debridement less than 20 sq cm down to and including the subcutaneous tissue layer with a #15 blade was performed to the left heel ulcer. This is rinsed with a copious amount of normal saline. Hemostasis was obtained with pressure. Dressings were applied consisting of triple antibiotic ointment and a couple of 4x4 gauze covered by a Medipore tape. The patient will continue daily dressings with this and continue using the AFO to protect this with the appropriate [place] pad placed in the AFO. PROCEDURE #2: Paring of the callus, right plantar medial arch was performed today down to intact skin. There was no bleeding noted. This was performed with a #15 blade. We will have the patient spend a little bit more time using the ankle foot orthotics with their adjustments to see if they improve. We will plan on having him return to clinic on Friday for a followup visit and see if this is improving. At that time, we will likely have him watch these areas carefully for the next two weeks and we may have him do one nursing visit to check the heel and make sure it is doing okay during that time I am gone. If this is not improving, when I am back, we will plan on considering the total contact cast for sure if the adjusted ankle-foot orthotics are not improving things. I encouraged the patient again today to get in for a second opinion at Dr. Sinha or Dr. Cuevas' offices. He understands and says that he will do so. 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 We will see the patient on Friday in outpatient for followup. Rafy Sams D.P.M. /[employer] [id number] /mab MTDD
== END 2019-07-08 15:40 ==
LOC: POD 15:11
PROVIDERS: ATTEND Podiatrist Foot & Ankle Surgery
DX: L97.428 Non-pressure chronic ulcer of left heel and midfoot with other specified severity (principal); L85.9 Epidermal thickening, unspecified; M21.962 Unspecified acquired deformity of left lower leg; M21.961 Unspecified acquired deformity of right lower leg; M67.874 Other specified disorders of tendon, left ankle and foot
CPT/HCPCS: 11042; 99213; A4554

== ENCOUNTER 2019-07-12 15:20 | Outpatient (CLI) | payer MEDICARE ==
--- NOTE | 2019-07-14 15:45 | OP Clinic Progress Note ---
DATE OF VISIT: 07/12/2019 SUBJECTIVE: Sherif is a 64-year-old male presenting to clinic today with a left heel fissure and right foot pain with posterior tibial tendon dysfunction and prominent osseous deformity on the plantar medial right arch with some hyperkeratosis and skin discoloration. The patient recently had padding applied to his ankle/foot orthotics at the plantar medial arch as well as on the left heel and these appear to be improving. The patient states that he is still having some pain on the right plantar medial arch and did a little bit more work outside doing Renny lights, etc., on the ground, not doing ladders, etc. The patient believes that the padding is helping, especially on the left heel. He does not admit to any fevers, chills, nausea, vomiting, shortness of breath or chest pain. OBJECTIVE: Vitals: Temperature 98.6, heart rate 89, respiration rate 18, blood pressure 125/68, O2 sat is 92% on room air. Vascular: Palpable DP and PT pulses bilaterally. 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 There is mild edema noted bilaterally. Dermatologic: The right plantar medial arch still has two osseous prominences, one of which has a little bit of hyperkeratotic tissue and central dark discoloration. This was left alone today as we debrided some of this last week. There is very mild red irritation around the edge, but this is much more faint than last week. He is overall having less irritation in this area. The left plantar heel fissure appears to be without any wetness at all at this time. It has closed up some more at the eschar area and there is very thin epithelialization trying to go across the open area. The wound is showing signs of trying to heal and, therefore, debridement was not performed today as there is thin epithelium covering the wound base. We will see if this continues to close up in the next couple of weeks. There is no erythema, purulence, malodor or any wetness, or any signs of infection noted on the left heel. There are no other skin concerns or abnormalities, bilateral feet. Musculoskeletal: There is still pain with palpation of the plantar medial arch at the osseous prominence. These prominence x 2 are still painful to the patient and we will continue to watch them. There is mild pain on palpation of the left plantar heel. There are no other gross abnormalities noted except for significant dropped arches bilaterally and posterior tibial tenderness function with forefoot eversion and rearfoot eversion noted. Neurologic: Light touch sensation is diminished to the feet bilaterally. ASSESSMENT AND PLAN: 1. Left heel fissure/ulcer. 2. Right foot pain. 3. Posterior tibial tendon dysfunction bilaterally. 4. Hyperkeratosis, right foot, medial osseous prominence area. There was no procedure performed today as the wound base on the left plantar heel fissure appears to be trying to heal and close up with an epithelialization at this time. The ankle/foot orthotics with the appropriate padding seems to be improving on both feet. We will continue to watch this carefully. The patient will continue to watch this carefully at home as well, and if there are any concerns, they are to come in and have it looked at by our nurse, Dilma, while I am out of town. They know I will be out of town this coming Friday through the entire next full week. If there are any concerns of a greater nature, they can consider going to the emergency room or an urgent care as they feel necessary. They will continue dressing changes at home with triple antibiotic ointment and gauze and Medipore tape over the left plantar heel fissure daily. They are to wash it and keep it clean. Return to clinic in 2-1/2 weeks to see me on the 29 of July. We will continue local wound care at that time and hopefully the heel would will be doing much better with the padding that we have. If so, we will continue using the ankle/foot orthotics and continue present treatment. We will follow up if he ever did get a second opinion with Dr. Cuevas or Dr. Sinha. SIDNEY Rodríguez/sandra Job #[id number] ROSA ISELA
== END 2019-07-12 15:50 ==
LOC: POD 15:20
PROVIDERS: ATTEND Podiatrist Foot & Ankle Surgery
DX: M76.821 Posterior tibial tendinitis, right leg (principal); M76.822 Posterior tibial tendinitis, left leg; L85.9 Epidermal thickening, unspecified
CPT/HCPCS: 99213; G0463; A4554

== ENCOUNTER 2019-07-29 14:31 | Outpatient (CLI) | payer MEDICARE ==
--- NOTE | 2019-08-02 14:59 | OP Clinic Progress Note ---
DATE OF VISIT: 07/29/2019 SUBJECTIVE: Sherif is a 64-year-old male presenting to clinic today for follow up of left heel fissure/ulcer and a right foot medial arch hyperkeratosis where his fallen arch is causing some significant pain and problems for him. The patient is unable to do any sort of surgery by me or anyone else at this time due to work issues and we are working through [facility] at [email or web address] to continually try and apply appropriate padding to this area on the right medial arch as well as the left plantar heel so that these can heal appropriately. The patient states that the padding in these has weakened and flattened already and they are going to get their own foam padding in the meantime until they can see Abisai, which is I believe a week from Friday. The patient has no further questions or concerns and the patient is feeling well overall except for the pain, which he calls 12/. He is having a very hard time walking around, but is unable to and unwilling to see Dr. Sinha or Dr. Cuevas for another opinion likely because he is unable to get out of work right now and has no PTO. He does not admit to any fevers, chills, nausea, vomiting, shortness of breath or chest pain. He admits that he worked extra this week and might be part of why he is hurting more and that the left plantar heel wound is not doing as well again. OBJECTIVE: Vitals: Temperature 98.2 degrees Fahrenheit, heart rate 91, respiration rate 20, blood pressure 126/54. Pain 12/10. O2 saturation is 95% on room air. Vascular: Palpable DP and PT pulses bilaterally. Capillary refill time is less than 3 seconds to the toes bilaterally. There is still mild edema noted bilaterally. Dermatologic: The right plantar medial arch still has the two prominent areas, one which is slightly erythematous from pressure and irritation and the more plantar medial arch one is with significant hyperkeratotic tissue with a central dark discoloration still. This was debrided today down to intact epithelium with very mild callus still present and mild discoloration still present centrally, but there is no open lesion at this time. There is no erythema at this site that is warm or suggestive of infection, but rather irritation. The left plantar heel fissure appears to be open again with some wetness and is measuring without any undermining 1.0 x 0.7 x 0.2 cm deep. This is debrided today and cross-hatched with a #15 blade. There was significant bleeding suggestive of good blood flow to the area. This site was held with pressure for hemostasis and rinsed and dried and had triple antibiotic ointment and 4x4 gauze and Medipore tape applied for dressings. The patient has no other signs of infection at this area without any erythema or purulence or malodor at this time. Musculoskeletal: There is still pain on palpation and with debridement of the left plantar fissure area. There is still pain on palpation at the plantar medial arch on the right side. There are two osseous prominences at the plantar medial arch on the right side. There is mild pain on palpation like I said on the left plantar heel. No other gross abnormalities except for significant dropped arches bilaterally and posterior tibial tendinosis and decreased function with forefoot eversion and rear foot eversion noted bilaterally. The patient is walking on his inside ankles bilaterally. He does walk better with AFOs. Neurologic: Light touch sensation is diminished to the feet bilaterally. ASSESSMENT AND PLAN: 1. Left heel fissure/ulcer. 2. Right foot pain. 3. Posterior tibial tendon dysfunction bilaterally. 4. Hyperkeratosis, right foot arch. PROCEDURE #1: Sharp debridement of the left heel plantar fissure/ulcer with a #15 blade down to and including the subcutaneous tissue layer less than 20 sq cm was performed today. This was rinsed with normal saline and dried and had triple antibiotic ointment, 4x4 gauze and Medipore tape applied for dressings. The patient was encouraged to go ahead and switch to another type of foam pad such as memory foam to try and protect that heel better. He is also going to I believe do the same on the right plantar medial arch AFO as well. PROCEDURE #2: Paring of the hyperkeratotic tissue on the right plantar medial arch osseous protrusion was performed today with a #15 blade to intact skin. The patient tolerated this well and this should help take away some of the pressure on that area and feel better. The patient has no further questions or concerns and denies trying to reach out to Dr. Cuevas or Dr. Sinha. He says things have just been so busy lately. We will continue present management and since we improved greatly with the padding and they are working on getting new padding I will give it a bit more time to see if this improves with said padding adjustments to bilateral ankle foot orthotics. The patient has no other questions and will have him return to clinic in one week for followup with me and then I will likely see him again Friday the and then a week and a half after that. The patient has no other questions and we will see him at that time. Rafy Sams D.P.M./[place] [id number] /mab MTDD
== END 2019-07-29 15:01 ==
LOC: POD 14:31
PROVIDERS: ATTEND Podiatrist Foot & Ankle Surgery
DX: M76.821 Posterior tibial tendinitis, right leg (principal); M76.822 Posterior tibial tendinitis, left leg; L85.9 Epidermal thickening, unspecified
CPT/HCPCS: 11042; 11055; 99213; G0463; A4554

== ENCOUNTER 2019-08-05 15:02 | Outpatient (CLI) | payer MEDICARE ==
--- NOTE | 2019-08-09 16:54 | OP Clinic Progress Note ---
DATE OF VISIT: 08/05/2019 SUBJECTIVE: Sherif is a 64-year-old male presented to the clinic with his today for a left heel fissure as well as right foot plantar medial arch pain and callus. The patient has been trying to do his own padding inside his ankle foot orthotics this last week as the pads from [facility]isai at [facility] had flattened very quickly. They stated that the ones that they are using also seemed to flatten pretty quickly but they may be helping slightly. The patient admits that it is quite painful on the right plantar medial arch to walk around and he has to use his ankle foot orthotic at all times bilaterally. He uses it at home as well. He does not admit to any other issues and states that he is seeing Abisai at [facility] tomorrow for a chance to get new foam pads applied. He also was encouraged and states that he will talk to Abisai about getting more foam pads from somewhere that he can adjust and replace on his own at home so that we keep good offloading. The patient had the best improvement when he first had these pads put in by [facility] and we would like to try and keep good fresh pads in there. He does not admit to any other fevers, chills, nausea, vomiting, shortness of breath or chest pain nor does he have any other questions or concerns at this time. OBJECTIVE: Vitals: Temperature 98.6 degrees Fahrenheit, heart rate 99, respiration rate 16, blood pressure 101/60. O2 saturation is 92% on room air. Vascular: Palpable DP and PT pulses, bilaterally. Capillary refill time is less than 3 seconds to the toes bilaterally. There is still mild edema bilaterally. Dermatologic: The right plantar medial arch has significant hyperkeratotic tissue with a dark central area, which was all debrided down to reveal a very soft, dark, discolored area that I would say at this point a superficial ulcer. This is very small just in the central part of that and measures approximately 0.5 x 0.2 cm. Again this is just a superficial area of open tissue. This was rinsed and dressed with Triple Antibiotic Ointment and a Band-Aid and the patient will need to continue to try to keep this padded and keep the dressings changed daily. He understands this. There was no bleeding and very minimal wetness when debriding. The left plantar foot fissure/ulcer under the left heel is present with a somewhat fibrogranular base with a base measuring 1.2 x 0.6 x 0.2 cm deep. This was debrided today as well with good bleeding. It was rinsed with copious amount of normal saline. The patient has no erythema or any warmth or redness or abnormal drainage or purulence or any other signs of infection noted on the right or left feet. Musculoskeletal: There is obvious fallen arches bilaterally with significant pes planovalgus deformity and posterior tibial tendon dysfunction. The patient has osseous prominences on the plantar medial arch one and then one above the other, slightly higher on the medial side. Neurologic: Light touch sensation is diminished to the toes bilaterally. ASSESSMENT AND PLAN: 1. Left heel fissure/pressure ulcer, stage III. 2. Right foot superficial stage I pressure ulcer - new at the right plantar medial arch where the previous large callus has been. 3. Right foot pain. 4. Posterior tibial tendon dysfunction bilaterally. 5. Hyperkeratosis right plantar medial arch. PROCEDURE #1: Sharp debridement of the left heel ulcer, less than 20 sq. cm down to and including the subcutaneous tissue layer with the #15 blade was performed today. The surrounding edges of the skin were graded as well. There was mild bleeding, which is controlled with pressure. The site was rinsed with normal saline, dried and dressings were applied consisting of Triple Antibiotic Ointment, 4 x 4 gauze and Medipore tape. The patient is to continue trying to offload the best he can especially with Abisai's help and his ankle foot orthotics with appropriate foam pads. PROCEDURE #2: Paring of the callus to reveal a stage I pressure ulcer at the plantar medial aspect of the right midfoot was performed with a #15 blade today. This wound was obviously present with a dark discoloration prior to callus removal but it was slightly revealed with callus removal today. This was rinsed as well, dried and will continue to have Triple Antibiotic Ointment and a Band- Aid applied daily and appropriate padding with help from Abisai to the patient. The patient understood the importance of how we are going to give it a little bit more time and effort with giving Abisai another chance with appropriate foam padding and offloading as well as the patient's efforts after communicating with [facility]isai and finding out what he suggests for them to do at home to keep the pads working well. If we do not get any improvement in the next few weeks then I am going to go ahead and for sure move on to a total contact cast especially on that left foot. The patient completely understands that we are just buying time and he knows that he is going to need surgery and even a planing osseous procedure to remove the bump on that right side with required time off work to heal and he may as well get the full appropriate treatment rather than just planing the bone. The patient understands this and knows that his left heel will likely not heal also unless we can get pressure off of this somehow and he cannot take time off work right now. He does have the next week off from work and hopefully this will help get a good head start on getting pressure off of the heel. Return to clinic on Friday on August 09 for her continued wound care. Rafy Sams D.P.M./[place] [id number] /mab MTDD
== END 2019-08-05 15:32 ==
LOC: POD 15:02
PROVIDERS: ATTEND Podiatrist Foot & Ankle Surgery
DX: L89.891 Pressure ulcer of other site, stage 1 (principal); M76.821 Posterior tibial tendinitis, right leg; M76.822 Posterior tibial tendinitis, left leg; L85.9 Epidermal thickening, unspecified
CPT/HCPCS: 11042; 11055; 99213; G0463

== ENCOUNTER 2019-08-09 15:03 | Outpatient (CLI) | payer MEDICARE ==
--- NOTE | 2019-08-10 16:52 | OP Clinic Progress Note ---
DATE OF VISIT: 08/09/2019 SUBJECTIVE: Sherif is a 64-year-old male presenting to clinic today for follow- up of a left heel fissure/pressure ulcer stage 3 as well as an extra-small skin flap opening that is already closing on its own from having removed tape around the previous wound and accidentally ripping some skin back a bit which they pulled it back down and it is healing well together. The patient also is here to follow up on the right plantar medial arch area where he has been having pain and pressure and a small open lesion last week. The patient states that he is overall doing better and that he saw Abisai and was given some new foam inserts for the left heel as well as 5 changes of it and instructions of how to change it out if it starts to flatten. The patient is excited for going forward to see if this improves. Memo marilynn Athlete Manager was happy with the right plantar medial arch padding that they were using and overall it already looks better today than it did previously. The patient does not admit to any fevers, chills, nausea, vomiting, shortness of breath or chest pain. OBJECTIVE: Vitals: Temperature 98.4 degrees Fahrenheit, heart rate 79, respiration rate 18, blood pressure 129/73. O2 saturation is 92% on room air. Vascular: Palpable DP and PT pulses bilaterally. Capillary refill time is less than 3 seconds to the toes bilaterally. There is no edema noted bilaterally. Dermatologic: The right plantar medial arch area has a small hyperkeratotic lesion noted with a dark central location that is slightly soft but is not open at this time. It has healed over since last week and there is no erythema or drainage of any kind at this time. The patient has been using a Band-Aid and will continue to use that. He does not need any antibiotic ointment on it as it is not open at this time. The left plantar heel fissure/pressure ulcer stage 3 is still open and increased in size at 1.0 x 0.6 x 0.1 cm deep. There is no erythema or abnormal drainage, purulence or malodor noted, left heel. There is also a small skin flap just on the edge of where the tape was from previous dressing that when the patient tried to pull off, pulled some skin back and they pushed the skin back down flat. This is unable to be loosened from the skin around it and it is obviously already beginning to heal. There is no erythema, or signs of warmth, drainage or any other signs of infection noted. There are no other skin abnormalities or concerns noted. Musculoskeletal: There is obvious posterior tibial tendon dysfunction with a fallen arch bilaterally. The patient also has an osseous prominence plantar medial arch right foot that is still being watched carefully as well as a second plantar medial arch slightly more dorsal. There is no pain on palpation today on either foot. Neurologic: Light touch sensation is diminished to the toes bilaterally. ASSESSMENT AND PLAN: 1. Left heel fissure/pressure ulcer stage 3. 2. Right foot superficial stage 1 pressure ulcer healed over with mild hyperkeratosis. 3. Right foot pain. 4. Posterior tibial tendon dysfunction bilaterally. 5. Hyperkeratosis, right foot. PROCEDURE #1: Sharp debridement of the left plantar heel pressure ulcer with a #15 blade down to and including the subcutaneous layer of less than 20 sq cm was performed. The patient bled minorly and this was controlled with pressure. The site was rinsed with a copious amount of normal saline, dried and dressings were applied consisting of triple antibiotic ointment, 4x4 gauze and Medipore tape. The Medipore tape was not covering the previous injury site on the skin, but rather the gauze was covering that area. The patient tolerated the procedure well and will continue using the new foam pads as needed from [facility]. We will have the patient return to clinic in 1-1/2 weeks on 08/19/2019. If things are not improving in the next 2 or 3 weeks then we will definitely move forward with a total contact cast. We are still anxious to see if with the improved padding and repeat pad changes the patient is doing will be helpful. The patient is to return to clinic sooner or to the ER if any issues in the meantime. Rafy Sams D.P.M. [place] Job#: [id number] MTDD
== END 2019-08-09 15:33 ==
LOC: POD 15:03
PROVIDERS: ATTEND Podiatrist Foot & Ankle Surgery
DX: M76.821 Posterior tibial tendinitis, right leg (principal); M76.822 Posterior tibial tendinitis, left leg; L85.9 Epidermal thickening, unspecified; L89.623 Pressure ulcer of left heel, stage 3
CPT/HCPCS: 11042; 99213; G0463; A4554

== ENCOUNTER 2019-08-19 15:04 | Outpatient (CLI) | payer MEDICARE ==
--- NOTE | 2019-08-23 12:55 | OP Clinic Progress Note ---
DATE OF VISIT: 08/19/2019 SUBJECTIVE: Sherif is a 64-year-old male presenting to the clinic for follow up of left plantar heel fissure and right plantar medial arch callusing and previous wound. The patient presents today without any complaints or concerns and states that he feels that the padding he is using in his ankle-foot orthotics are helping. He feels that the left plantar heel fissure is improving. He admits to continued pain in both areas, but he understands that he will continue to have these problems unless he can get this healed or surgically fixed regarding the left heel fissure and the right ankle respectively. He does not admit to any fevers, chills, nausea, vomiting, shortness of breath or chest pain. OBJECTIVE: Vitals: Temperature 98.3 degrees Fahrenheit, heart rate 89, respiration rate 18, blood pressure 108/61. O2 saturation is 95% on room air. Vascular: Palpable DP and PT pulses, bilaterally. Capillary refill time is less than 3 seconds to the toes bilaterally. There is no edema noted bilaterally. Dermatologic: The right plantar medial arch area still has a hyperkeratotic lesion with a dark central location that was debrided down to intact epithelium and very thin dark central callusing left alone at this time. There was no open lesion at this time or really any erythema, warmth or signs of infection. The left plantar heel fissure/pressure ulcer stage 3 is still open, but is improved this week and with softer skin around the edges. The wound is measuring today at 0.45 x 0.7 x 0.1 cm deep. There is no erythema, abnormal drainage, purulence or malodor noted on the left heel today. This has improved from last week where it measured 1.0 x 0.6 x 0.1 cm deep. The patient also has a very small superficial aspect of a wound similar to this one just distal about 1 cm further distal. This is very superficial and not really able to be debrided, but was treated with antibiotic ointment today and dressed with gauze at the same time the other wound was today. We will keep an eye on this as well. There are no signs of infection at this site either. Musculoskeletal: There is obvious posterior tibial tendon dysfunction of the foot with fallen arch that is still being watched carefully bilaterally as well as the right foot plantar medial arch prominence that is osseous and being watched carefully as well. There is no pain on palpation on the left heel, but there is some pain on palpation still on the right plantar medial arch osseous prominences. 5/5 muscle strength with ankle and subtalar joint range of motion bilaterally. Neurologic: Light touch sensation is diminished to the toes bilaterally. ASSESSMENT AND PLAN: 1. Left heel fissure times 2/ulcer stage 3 - improving. 2. Right foot plantar medial hyperkeratosis - debrided to intact thin epithelium. 3. Right foot pain. 4. Posterior tibial tendon dysfunction bilaterally. 5. Hyperkeratosis right foot plantar medial arch. PROCEDURE #1: Sharp debridement of the left heel ulcer/fissure less than 20 sq cm down to and including the subcutaneous tissue layer with a #15 blade was performed today. Bleeding was controlled with pressure. This was dressed with normal saline, dried and had triple antibiotic ointment applied to this wound as well as the slightly more superficial one just distal to it both under the heel and covered with 4 x 4 gauze and Medipore tape. PROCEDURE #2: Paring of the hyperkeratotic skin over the right plantar medial arch was performed today with a #15 blade over the osseous prominence to intact epithelium. The patient tolerated the procedure well. The patient understands that we are going to continue to see if these pads continue to improve his wound on the left heel. So far we are getting improvement again and he will continue to trade out the pads as needed. He is making sure that he has good ones in his ankle-foot orthotics at all times. He has an appointment coming up with Abisai I believe next week, which I encouraged him to keep. The patient knows to continue daily dressing changes. He will return to the clinic in two weeks for follow up and knows that I will not be here next week and therefore will need to go to the urgent care or an emergency room or a primary care provider if any concerns arise. Rafy Sams D.P.M./[employer] [id number] /mb ROSA ISELA
== END 2019-08-19 15:34 ==
LOC: POD 15:04
PROVIDERS: ATTEND Podiatrist Foot & Ankle Surgery
DX: L97.428 Non-pressure chronic ulcer of left heel and midfoot with other specified severity (principal); L85.9 Epidermal thickening, unspecified; M67.971 Unspecified disorder of synovium and tendon, right ankle and foot; M67.972 Unspecified disorder of synovium and tendon, left ankle and foot
CPT/HCPCS: 11042; 11055; 99213; G0463; A4554